=== PATIENT | male | born 1940 | race Caucasian/White ===

== ENCOUNTER 2020-12-27 10:56 | Emergency (ER) | payer MEDICARE | END 2020-12-27 12:38 | disposition home or self-care (01) | LOC: EDH 10:56 | DX: S63.284A Dislocation of proximal interphalangeal joint of right ring finger, initial encounter (principal); S63.694A Other sprain of right ring finger, initial encounter; W20.8XXA Other cause of strike by thrown, projected or falling object, initial encounter; Y93.89 Activity, other specified; Y92.59 Other trade areas as the place of occurrence of the external cause; Y99.8 Other external cause status | CPT/HCPCS: 26770; 73130 ==

== ENCOUNTER → 2020-12-27 | Outpatient (CLI) | payer MEDICARE | END | disposition home or self-care (01) | LOC: RAH 10:07 | PROVIDERS: ATTEND Clinical Nurse Specialist Family Health | DX: S60.221A Contusion of right hand, initial encounter (principal); M79.644 Pain in right finger(s); M85.841 Other specified disorders of bone density and structure, right hand; W19.XXXA Unspecified fall, initial encounter; Y93.9 Activity, unspecified; Y92.89 Other specified places as the place of occurrence of the external cause; Y99.8 Other external cause status | CPT/HCPCS: 73130 ==